=== PATIENT | male | born 1985 | race Caucasian/White ===

== ENCOUNTER 2016-11-08 14:57 | Emergency (ER) | payer OTHER ==
[~2016-11-08] VITALS: Ht 182.9 cm; Wt 130.0 kg
[2016-11-08 14:59] VITALS: BP 163/80; PULSE 106; RESP 15; TEMP 98.2; O2SAT 99
[2016-11-08] MEDS ORDERED: predniSONE 20 MG TAB PO ONE (15:30)
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
[2016-11-08] MEDS ORDERED: PRED20 PO (15:36)
[2016-11-08] MEDS ORDERED: TRAM50TA PO (15:36)
[2016-11-08] MEDS ORDERED: CYCL1TAB29 PO (15:36)
== END 2016-11-08 15:50 | disposition home or self-care (01) ==
LOC: NEPK 14:57
DX: M65.9 Synovitis and tenosynovitis, unspecified (principal); S46.911A Strain of unspecified muscle, fascia and tendon at shoulder and upper arm level, right arm, initial encounter; M75.51 Bursitis of right shoulder; Y04.0XXA Assault by unarmed brawl or fight, initial encounter
CPT/HCPCS: 99284; J7512

== ENCOUNTER 2017-07-17 21:38 | Emergency (ER) | payer SELFPAY ==
[~2017-07-17 21:38] MED LIST: CYCL10TA PO; PRED20 PO; TRAM50TA PO
[2017-07-17 22:38] VITALS: BP 161/79; PULSE 92; RESP 18; TEMP 99.6; O2SAT 97
[2017-07-17] MEDS ORDERED: DEXAMETHASONE SOD PHOS 4 MG/ML VIAL IM ONE (23:30)
[2017-07-17] MEDS ORDERED: PENICILLIN G BENZATHINE 1,200,000 UNITS/2 ML SYRINGE IM ONE (23:30)
[2017-07-17] MEDS: RESP: ALBUTEROL 2.5 MG/IPRATROPIUM 0.5 MG NEB (SCH) INH ×2 (23:35→23:36)
[2017-07-17 23:45] VITALS: BP 157/75; PULSE 97; RESP 18; O2SAT 98
[2017-07-18] MEDS ORDERED: MOXI400T4 PO (01:01)
[2017-07-18] MEDS ORDERED: ALBU6.7H INH (01:01)
--- NOTE | 2017-07-18 01:02 | PD ---
HPI Chief Complaint: Cold / Flu Symptoms Time Seen by Provider: 23:14 Travel History International Travel<30 days: No Contact w/Intl Traveler<30days: No Traveled to known affect area: No History of Present Illness HPI Patient is 32 years old and arrives with complaint of "my glands are swollen.". He also reports a cough for the past 4 months. He reports pain with swallowing. He reports completing a course of azithromycin. He describes dizziness. He smokes tobacco. He denies rhinorrhea. He denies GERD. No fever. He reports no chest pain. PFS Past Medical History Asthma: Yes Diminished Hearing: No Respiratory: Yes (BRONCHITIS) Immunizations Current: Yes Past Surgical History Other Surgery: Yes (ENDOSCOPY) Social History Alcohol Use: Yes Tobacco Use: Yes (1/2 PPD) Substance Use: No Allergies-Medications (Allergen,Severity, Reaction): Coded Allergies: No Known Allergies (Unverified Allergy, Unknown, 07/18/17) Reported Meds & Prescriptions Reported Meds & Active Scripts Active No Active Prescriptions or Reported Medications Review of Systems Except as stated in HPI: all other systems reviewed are Neg General / Constitutional: No: Fever Physical Exam Narrative GENERAL: 32-year-old male pleasant well-nourished well-developed Vital Signs Date Time Temp Pulse Resp B/P (MAP) Pulse Ox O2 Delivery O2 Flow Rate FiO2 07/17/17 23:45 97 18 157/75 (102) 98 Room Air 07/17/17 22:38 99.6 92 18 161/79 (106) 97 SKIN: Warm and dry. HEAD: Atraumatic. Normocephalic. EYES: Pupils equal and round. No scleral icterus. No injection or drainage. ENT: No nasal bleeding or discharge. Mucous membranes pink and moist. Tonsils are erythematous with hypertrophy and exudate on the left side. Posterior oropharynx is widely patent. NECK: Trachea midline. No JVD. Minimal lymphadenopathy. CARDIOVASCULAR: Regular rate and rhythm. RESPIRATORY: No accessory muscle use. Clear to auscultation. Breath sounds equal bilaterally. GASTROINTESTINAL: Abdomen soft, non-tender, nondistended. Hepatic and splenic margins not palpable. MUSCULOSKELETAL: Extremities without clubbing, cyanosis, or edema. No obvious deformities. NEUROLOGICAL: Awake and alert. No obvious cranial nerve deficits. Motor grossly within normal limits. Five out of 5 muscle strength in the arms and legs. Normal speech. PSYCHIATRIC: Appropriate mood and affect; insight and judgment normal. Data Data Last Documented VS Vital Signs Date Time Temp Pulse Resp B/P (MAP) Pulse Ox O2 Delivery O2 Flow Rate FiO2 07/17/17 23:45 97 18 157/75 (102) 98 Room Air 07/17/17 22:38 99.6 VS reviewed Orders Orders Chest, Pa & Lat (07/17/17 23:30) Albuterol-Ipratropium Neb (Duoneb Neb) (07/17/17 23:30) Dexamethasone Inj (Decadron Inj) (07/17/17 23:30) Penicillin G Benzathine Inj (Bicillin L- (07/17/17 23:30) MDM Medical Decision Making Medical Screen Exam Complete: Yes Emergency Medical Condition: Yes Medical Record Reviewed: Yes Differential Diagnosis Strep throat, pna, bronchitis Narrative Course Treatment for Strep throat Marked improvement with nebulizers and Decadron Scripts as below Diagnosis Primary Impression: Pharyngitis Qualified Codes: J02.9 - Acute pharyngitis, unspecified Additional Impression: Bronchitis Referrals: Primary Care Physician 2 days Med/Other Pt SpecificInfo: Prescription(s) given Scripts Moxifloxacin (Avelox) 400 Mg Tab 400 MG PO DAILY for Infection for 5 Days, #5 TAB 0 Refills Prov: Rony Gallardo MD 07/18/17 Albuterol 6.7 GM Inh (Proventil Hfa 6.7 GM Inh) 90 Mcg/Act Aer 2 PUFF INH Q6H Y for SHORTNESS OF BREATH, #1 INHALER 0 Refills Prov: Rony Gallardo MD 07/18/17 Disposition: 01 DISCHARGE HOME Condition: Stable Rony Gallardo MD Jul 18, 2017 01:02
[2017-07-18 01:18] VITALS: BP 142/75; PULSE 97; RESP 18; O2SAT 97
--- NOTE | 2017-07-18 01:41 | RADRPT ---
EXAM DATE/TIME: 07/18/2017 00:42 [place] COMPARISON: No previous studies available for comparison. INDICATIONS : Coughing up blood- Evaluate for pneumonia. MEDICAL HISTORY : Asthma, Pneumonia. SURGICAL HISTORY : None. ENCOUNTER: Initial ACUITY: 1 day PAIN SCORE: 6/10 LOCATION: Bilateral chest FINDINGS: PA and lateral views of the chest demonstrate the lungs to be symmetrically aerated without evidence of mass, infiltrate or effusion. The cardiomediastinal contours are unremarkable. Osseous structure s are intact. CONCLUSION: No acute disease. Arun Martin MD on July 18, 2017 at 1:38 Board Certified Radiologist. This report was verified electronically.
== END 2017-07-18 02:22 | disposition home or self-care (01) ==
LOC: NEPE 21:38
DX: J02.9 Acute pharyngitis, unspecified (principal); J40 Bronchitis, not specified as acute or chronic; F17.210 Nicotine dependence, cigarettes, uncomplicated
CPT/HCPCS: 71046; 94640; 94664; 96372; 99283; J0561; J1100